=== PATIENT | male | born 1975 | race Caucasian/White ===

== ENCOUNTER → 2020-07-27 | Outpatient (CLI) | payer SELFPAY ==
[~2020-07-27] MED LIST: NO HOME MEDICATIONS
== END ==
LOC: COL.RAD 10:25
DX: M79.89 Other specified soft tissue disorders (principal)

== ENCOUNTER → 2021-07-27 | Outpatient (CLI) | payer SELFPAY | LOC: COL.RAD 09:35 | DX: M19.041 Primary osteoarthritis, right hand (principal) ==

== ENCOUNTER → 2021-08-23 | Outpatient (CLI) | payer SELFPAY | LOC: COL.RAD 12:45 | DX: M19.041 Primary osteoarthritis, right hand (principal); M67.241 Synovial hypertrophy, not elsewhere classified, right hand ==

== ENCOUNTER → 2021-09-12 | Outpatient (CLI) | payer SELFPAY | LOC: COL.RAD 13:17 | DX: M79.89 Other specified soft tissue disorders (principal) ==